=== PATIENT | female | born 1995 | race Two or more races ===

== ENCOUNTER 2017-07-24 19:53 | Emergency (ER) | payer SELFPAY ==
[~2017-07-24] VITALS: Ht 167.6 cm; Wt 81.6 kg
[2017-07-24] MEDS ORDERED: NKM (20:16)
[2017-07-25 02:55] VITALS: BP 0/0
== END 2017-07-25 02:55 | disposition left against medical advice (07) ==
LOC: EMR 20:45
DX: R51 Headache (principal); Z53.21 Procedure and treatment not carried out due to patient leaving prior to being seen by health care provider
CPT/HCPCS: 99282